=== PATIENT | male | born 1985 | race African-American/Black ===

== ENCOUNTER 2017-06-14 20:05 | Emergency (ER) | payer SELFPAY ==
[2017-06-14 20:07] VITALS: BP 148/97; PULSE 84; RESP 16; TEMP 98.7; O2SAT 98
--- NOTE | 2017-06-14 20:46 | RADRPT ---
EXAM DATE/TIME: 06/14/2017 20:35 [facility] COMPARISON: No previous studies available for comparison. INDICATIONS : Patient complains of severe jaw pain after hitting it on daughters head, patient had surgery to fix j aw 1 month ago. RADIATION DOSE: 31.35 CTDIvol (mGy) MEDICAL HISTORY : None SURGICAL HISTORY : Mandible surgery. ENCOUNTER: Initial ACUITY: 1 day PAIN SCORE: 10/10 LOCATION: Mandible. TECHNIQUE: Volumetric scanning of the facial bones was performed. Using automated exposure control and adjustme nt of the mA and/or kV according to patient size, radiation dose was kept as low as reasonably achiev able to obtain optimal diagnostic quality images. DICOM format image data is available electronicall y for review and comparison. FINDINGS: ORBITS: The orbital and infraorbital osseous structures are intact. The retroconal structures have a normal configuration. No radiopaque foreign bodies are seen. NASAL BONE: The nasal bone and maxillary spine are intact ZYGOMATIC ARCHES: Symmetric without evidence of fracture. SINUSES: Mild mucoperiosteal thickening in the maxillary antra bilaterally. NASAL CAVITY: The nasal septum is intact and midline. The lacrimal ducts are intact. SOFT TISSUES: No radiopaque foreign bodies seen. No soft-tissue swelling is seen. INTRACRANIAL: No intracranial air seen. CRIBIFORM PLATE: Grossly intact. MANDIBLE: Sideplate and osseous screws secure an apical mandibular fracture. Hardware is intact. No additional fractures identified CONCLUSION: 1. Findings a prior open reduction and internal fixation of an apical mandibular fracture secured wit h a side plate and osseous screws. Hardware all appears to be intact. Fracture line is still present. 2. No findings of acute fracture, however. 3. Mild chronic sinus disease in the maxillary antra bilaterally, right greater than left. Troy Granger MD on June 14, 2017 at 20:42 Board Certified Radiologist. This report was verified electronically.
--- NOTE | 2017-06-14 21:40 | PD ---
HPI Chief Complaint: Oral / Dental Pain or Problem Time Seen by Provider: 21:32 Travel History International Travel<30 days: No Contact w/Intl Traveler<30days: No Traveled to known affect area: No History of Present Illness HPI 31-year-old black male presents to emergency department for evaluation of jaw pain after accidentally hitting his jaw against his daughter's head today [place] the park. He states that he had a fracture of his mandible 4 weeks ago and had ORIF. He states that he is concerned that he may have disrupted his hardware. Pain is mild to moderate. Worse with movement. He denies any fever or chills. Patient notes that he just moved to the area 3 weeks ago from [place]. [facility] Past Medical History Narrative Medical Mandible fracture Immunizations Current: Yes Tetanus Vaccination: < 5 Years Past Surgical History Narrative Surgical ORIF mandible fracture Oral Surgery: Yes (JAW) Social History Alcohol Use: Yes Tobacco Use: Yes Substance Use: No Allergies-Medications (Allergen,Severity, Reaction): Coded Allergies: No Known Allergies (Unverified , 06/14/17) Review of Systems General / Constitutional: No: Fever Eyes: No: Visual changes HENT: No: Headaches, Sore Throat, Neck Stiffness, Neck Pain, Dental Difficulties, Ear Discharge Cardiovascular: No: Chest Pain or Discomfort Respiratory: No: Shortness of Breath Gastrointestinal: No: Abdominal Pain Genitourinary: No: Dysuria Musculoskeletal: Positive: Pain (jaw pain) Skin: No Rash Neurologic: No: Weakness Psychiatric: No: Depression Endocrine: No: Polydipsia Hematologic/Lymphatic: No: Easy Bruising Physical Exam Narrative GENERAL: Well-developed, well-nourished in no acute distress. Nontoxic appearing. HEAD: Normocephalic, atraumatic. EYES: Pupils equal round and reactive. Extraocular motions intact. No scleral icterus. No injection or drainage. ENT: TMs clear without erythema. The external auditory canals clear. Nose: clear . Posterior pharynx is pink and moist. No tonsillar edema or exudate. Uvula midline. Airway patent. NECK: Trachea midline.Supple, nontender, moves head freely. No central bony tenderness or spasm. CARDIOVASCULAR: Regular rate and rhythm without murmurs, gallops, or rubs. RESPIRATORY: Clear to auscultation. Breath sounds equal bilaterally. No wheezes , rales, or rhonchi. GASTROINTESTINAL: Abdomen soft, non-tender, nondistended. No hepato-splenomegaly , or palpable masses. No guarding. EXTREMITIES: No clubbing, cyanosis, or edema. No joint tenderness, effusion, or edema noted. BACK: Nontender without deformity or crepitance. No flank tenderness. Data Data Last Documented VS Vital Signs Date Time Temp Pulse Resp B/P (MAP) Pulse Ox O2 Delivery O2 Flow Rate FiO2 06/14/17 20:07 98.7 84 16 148/97 (114) 98 Room Air Orders Orders Ct Facial Bones W/O Iv Cont (06/14/17 ) Ed Discharge Order (06/14/17 21:35) MDM Medical Decision Making Medical Screen Exam Complete: Yes Emergency Medical Condition: Yes Medical Record Reviewed: Yes Interpretation(s) Last [address] 06/14/17 0000 Signed Impressions: Service Date/Time: Monday, June 14, 2017 20:35 - CONCLUSION: 1. Findings a prior open reduction and internal fixation of an apical mandibular fracture secured with a side plate and osseous screws. Hardware all appears to be intact. Fracture line is still present. 2. No findings of acute fracture, however. 3. Mild chronic sinus disease in the maxillary antra bilaterally, right greater than left. Troy Granger MD Differential Diagnosis MDM: High Differential diagnoses: Fracture, sprain, strain, dislocation, contusion, neurovascular injury Narrative Course Patient has had a CAT scan which reveals no acute fracture. He has had recent ORIF she appears to be intact. This is jaw contusion, healing mental fracture Diagnosis Primary Impression: Contusion of jaw Qualified Codes: S00.83XA - Contusion of other part of head, initial encounter Additional Impression: healing mandible fracture Patient Instructions: General Instructions Additional Instructions: Rest. Ice. 3 Advil every 6 hours. Follow-up with a medical doctor in one week. Soft foods. Return to the ER for emergencies. Med/Other Pt SpecificInfo: No Meds Exist/No RX given Disposition: 01 DISCHARGE HOME Condition: Stable Anthony Montero Jun 14, 2017 21:40
== END 2017-06-14 22:00 | disposition home or self-care (01) ==
LOC: NEPK 20:05
DX: S00.83XA Contusion of other part of head, initial encounter (principal); J32.0 Chronic maxillary sinusitis; Z72.0 Tobacco use; W51.XXXA Accidental striking against or bumped into by another person, initial encounter; Y92.830 Public park as the place of occurrence of the external cause
CPT/HCPCS: 70486; 99284

== ENCOUNTER 2018-01-08 09:01 | Emergency (ER) | payer SELFPAY ==
[~2018-01-08] VITALS: Ht 185.4 cm; Wt 75.0 kg
[2018-01-08 09:10] VITALS: BP 134/71; PULSE 65; RESP 16; TEMP 97.3; O2SAT 99
[2018-01-08] MEDS ORDERED: IBUP1TAB7 PO (09:42)
[2018-01-08] MEDS ORDERED: TRAM50 PO (09:42)
[2018-01-08] MEDS ORDERED: PERI0.126 SWISH-SPIT (09:42)
[2018-01-08] MEDS ORDERED: PENI500T PO (09:42)
--- NOTE | 2018-01-08 09:42 | PD ---
HPI Chief Complaint: Oral / Dental Pain or Problem Time Seen by Provider: 09:16 Travel History International Travel<30 days: No Contact w/Intl Traveler<30days: No Traveled to known affect area: No History of Present Illness HPI 32-year-old male with no significant medical history presents emergency department for evaluation of right sided tooth pain with associated facial swelling. Patient states that he had the tooth work done a couple weeks ago. Things were going well. He bit down on something yesterday and the tooth fell out. This is the mandibular first molar on the right side. Patient states he woke up this morning with swelling to his face. He has a moderate constant pain that is throbbing. It does not radiate anywhere. He denies any fever or chills. He is able to eat without difficulty, just not by on that side without pain. He has no other symptoms to report. [facility] Past Medical History Medical History: Denies Significant Hx Immunizations Current: Yes Past Surgical History Oral Surgery: Yes (JAW) Social History Alcohol Use: Yes Tobacco Use: Yes Substance Use: No Allergies-Medications (Allergen,Severity, Reaction): Coded Allergies: No Known Allergies (Unverified , 01/08/18) Reported Meds & Prescriptions Reported Meds & Active Scripts Active No Active Prescriptions or Reported Medications Review of Systems Except as stated in HPI: all other systems reviewed are Neg Physical Exam Narrative GENERAL: Well-nourished, well-developed male patient, ambulatory and in no acute distress. SKIN: Focused skin assessment warm/dry. HEAD: Normocephalic. Mild facial swelling to the right mandible adjacent to the right mandibular first molar. No fluctuance. EYES: No scleral icterus. No injection or drainage. ENT: Mucosa pink and moist. No erythema or exudates. No uvular edema. No uvular , palatal, or tonsillar deviation. Airway patent. Nasal turbinates appear normal without nasal blood, purulent drainage or septal hematoma. DENTAL: No loose or chipped teeth. The right mandibular first molar is missing. There is gingival erythema and edema. There is no appreciable abscess. No malocclusion. NECK: Supple, trachea midline. No JVD or lymphadenopathy. CARDIOVASCULAR: Regular rate and rhythm without murmurs, gallops, or rubs. RESPIRATORY: Breath sounds equal bilaterally. No accessory muscle use. Data Data Last Documented VS Vital Signs Date Time Temp Pulse Resp B/P (MAP) Pulse Ox O2 Delivery O2 Flow Rate FiO2 01/08/18 09:10 97.3 65 16 134/71 (92) 99 MDM Medical Decision Making Medical Screen Exam Complete: Yes Emergency Medical Condition: Yes Medical Record Reviewed: Yes Differential Diagnosis Dental caries versus pulpitis versus gingivitis versus dental abscess Narrative Course 32-year-old male presents emergency department for evaluation of facial swelling and tooth pain. Patient is missing his right mandibular first molar. He states this fell out yesterday after biting onto something. He does have facial swelling adjacent to the area. He will be started on oral antibiotics and provided pain control. He is encouraged to seek dental evaluation return immediately with acute worsening symptoms. Diagnosis Primary Impression: Dentalgia Additional Impression: Facial swelling Referrals: Dentist Primary Care Physician Patient Instructions: Dental Abscess (ED), General Instructions Departure Forms: Tests/Procedures, Work Release Enter return to work date: Jan 09, 2018 Additional Instructions: Follow-up with a dentist Seek primary care evaluation Return immediately with acute worsening symptoms Med/Other Pt SpecificInfo: Prescription(s) given Scripts Tramadol (Ultram) 50 Mg Tab 50 MG PO Q8H Y for PAIN GREATER THAN 6, #20 TAB 0 Refills Prov: Elena Yu 01/08/18 Penicillin V Potassium (Penicillin V Potassium) 500 Mg Tab 500 MG PO Q6H for Infection for 10 Days, #40 TAB 0 Refills Prov: Elena Yu 01/08/18 Ibuprofen (Ibuprofen) 800 Mg Tab 800 MG PO Q8H Y for PAIN SCALE 1 TO 10, #30 TAB 0 Refills Prov: Elena Yu 01/08/18 Chlorhexidine Gluconate (Mouth) Liq (Peridex Liq) 0.12% Soln 15 ML SWISH-SPIT BID for 14 Days, #420 ML 0 Refills Prov: Elena Yu 01/08/18 Disposition: 01 DISCHARGE HOME Condition: Stable Elena Yu Jan 08, 2018 09:42
[2018-01-11] MEDS ORDERED: ZOFR4TAB PO (15:18)
[2018-01-11] MEDS ORDERED: CLIN150C14 PO (15:18)
== END 2018-01-08 10:03 | disposition home or self-care (01) ==
LOC: NEPK 09:01
DX: R22.0 Localized swelling, mass and lump, head (principal); Z72.0 Tobacco use
CPT/HCPCS: 99283